=== PATIENT | male | born 1955 | race Caucasian/White ===

== ENCOUNTER 2019-11-04 10:14 | Day surgery (SDC) | payer BC ==
[~2019-11-04] VITALS: Ht 172.7 cm; Wt 109.1 kg
[~2019-11-04 10:14] MED LIST: Indomethacin50 MG PO; LEVSOD125 PO; LEVSOD50
--- NOTE | 2019-11-04 11:56 | NUR ---
11/04/19 [address] UPDATED PT. THAT WAS RUNNING BEHIND. PT. UP TO BR AT THIS TIME & GIVEN A WARM BLANKET.
--- NOTE | 2019-11-04 13:43 | NUR ---
11/04/19 [address] PT INSTRUCTED OFFICE WILL CONTACT HIM TO RESCHEDULE COLONOSCOPY DUE TO POOR PREP.
== END 2019-11-04 23:59 | disposition home or self-care (01) ==
LOC: ORSCSDS 10:14
PROVIDERS: Student in an Organized Health Care Education/Training Program
PROC: 0DB58ZX Excision of Esophagus, Via Natural or Artificial Opening Endoscopic, Diagnostic (ICD-10-PCS; principal; 2019-11-04 11:15)
PROC: 0DBN8ZX Excision of Sigmoid Colon, Via Natural or Artificial Opening Endoscopic, Diagnostic (ICD-10-PCS; principal; 2019-11-04 11:15)
PROC: 0DBP8ZX Excision of Rectum, Via Natural or Artificial Opening Endoscopic, Diagnostic (ICD-10-PCS; principal; 2019-11-04 11:15)
PROC: 0DB78ZX Excision of Stomach, Pylorus, Via Natural or Artificial Opening Endoscopic, Diagnostic (ICD-10-PCS; principal; 2019-11-04 11:15)
DX: K92.1 Melena (principal); K21.9 Gastro-esophageal reflux disease without esophagitis; Z86.010 Personal history of colon polyps; R93.5 Abnormal findings on diagnostic imaging of other abdominal regions, including retroperitoneum; K29.70 Gastritis, unspecified, without bleeding; K63.5 Polyp of colon; R85.613 High grade squamous intraepithelial lesion on cytologic smear of anus (HGSIL); K44.9 Diaphragmatic hernia without obstruction or gangrene; E03.9 Hypothyroidism, unspecified; Z79.899 Other long term (current) drug therapy
CPT/HCPCS: 88305; 88312; 88341; 88342; J2704; J7120